=== PATIENT | male | born 1970 | race Caucasian/White ===

== ENCOUNTER 2017-09-10 18:56 | Emergency (ER) | payer SELFPAY ==
[~2017-09-10] VITALS: Ht 157.5 cm; Wt 71.7 kg
[2017-09-10 18:59] VITALS: Ht 157.5 cm; Wt 71.7 kg
[2017-09-10] MEDS ORDERED: HYDROCODONE/APAP (5/325) TAB PO ONE (20:00)
--- NOTE | 2017-09-10 20:45 | RADRPT ---
PROCEDURE: Right ankle CLINICAL INDICATION: Trauma TECHNIQUE: 3 views COMPARISON: None FINDINGS: Ankle mortise appears intact with overlying soft tissue swelling noted over the lateral malleolus. A lso noted nondisplaced fifth metatarsal base fracture. Correlate clinically. IMPRESSION: Fifth metatarsal base fracture. Intact ankle mortise. RPTAT: [facility] Physician Nuvia Date Time Electronically viewed and signed by Physician Nuvia on 09/10/2017 20:45 MB/
--- NOTE | 2017-09-10 20:51 | RADRPT ---
PROCEDURE: XR Foot. CLINICAL INDICATION: Trauma, pain TECHNIQUE: AP, lateral and oblique views of the right foot was obtained. The images were reviewed on a PACS workstation. COMPARISON: None. FINDINGS: Nondisplaced fracture of the base of the fifth metatarsal. No dislocation is seen . Mild dorsal soft tissue swelling. IMPRESSION: Fracture of the base of the fifth metatarsal. Mild dorsal soft tissue swelling. RPTAT: [facility]JES .Tommy Perry MD, MD Date Time Electronically viewed and signed by .Tommy Perry MD, on 09/10/2017 20:50 .S/
[2017-09-10] MEDS ORDERED: HYDR-906 PO (20:54)
[2017-09-10] MEDS ORDERED: IBUP800T25 PO (20:54)
--- NOTE | 2017-09-10 20:57 | ERD ---
ER Documentation Chief Complaint Chief Complaint fell last , hematoma&swollen R ankle now HPI This patient is a 46-year-old male who states he had a mechanical fall on and since he has been having pain and swelling to the right ankle. He is able to bear weight and walk slowly with pain. He has not taken any medication for pain. Denies any head injury or KO. Denies any numbness or tingling. ROS All systems reviewed and are negative except as per history of present illness. Medications Home Meds Active Scripts Hydrocodone/Acetaminophen (Claridge 5-325 Tablet) 1 Each Tablet, 1 TAB PO Q6H Y for PAIN, #20 TAB Prov:PARIS PINZON PA-C 09/10/17 Ibuprofen* (Motrin*) 800 Mg Tab, 800 MG PO Q6, #30 TAB Prov:PARIS PINZON PA-C 09/10/17 Allergies Allergies: Coded Allergies: No Known Allergy (Unverified , 09/10/17) PMhx/Soc History of Surgery: No Anesthesia Reaction: No Hx Neurological Disorder: No Hx Respiratory Disorders: No Hx Cardiac Disorders: No Hx Psychiatric Problems: No Hx Miscellaneous Medical Probl: No Hx Alcohol Use: No Hx Substance Use: No Hx Tobacco Use: No Smoking Status: Never smoker FmHx Family History: No diabetes Physical Exam Vitals Vital Signs Date Time Temp Pulse Resp B/P Pulse Ox O2 Delivery O2 Flow Rate FiO2 09/10/17 18:59 97.2 84 18 128/74 96 Physical Exam Const: [] Head: Atraumatic Eyes: Normal Conjunctiva ENT: Normal External Ears, Nose and Mouth. Neck: Full range of motion..~ No meningismus. Resp: Clear to auscultation bilaterally Cardio: Regular rate and rhythm, no murmurs Ext: Swelling over the ankle and tenderness throughout particularly over the lateral aspect. Pedal pulse 2+, sensation to light touch is intact, capillary refill less than 2 seconds, no bony abnormality Results 24 hrs Current Medications Medications (Trade) Dose Ordered Sig/Willy Route PRN Reason Start Time Stop Time Status Last Admin Dose Admin Acetaminophen/ Hydrocodone Bitart (Claridge (5/325)) 1 tab ONCE ONCE PO 09/10/17 20:00 09/10/17 20:01 DC 09/10/17 19:49 Procedures/MDM 46-year-old male presents with metatarsal fracture after trauma which was confirmed on x-ray today. He is neurovascularly intact. He was given Claridge for pain control as well as prescription for Claridge and ibuprofen. He was given crutches and he was placed in a splint and given outpatient referral to orthopedics. Patient counseled regarding my diagnostic impression and care plan. Prior to discharge all questions answered. Pt agrees with treatment plan and understands strict return precautions. Pt is instructed to follow up with primary care provider within 24-48 hours. Precautionary instructions provided including instructions to return to the ER if not improving or for any worsening or changing symptoms or concerns. Departure Diagnosis: Primary Impression: Metatarsal fracture Condition: Stable Patient Instructions: Fracture, Lower Extremity Referrals: [facility] () ted se rodriguez hecho un examen mdico de control que le indica que no est en gala condicin que requiera tratamiento urgente en el Departamento de Emergencia. Un estudio ms profundo y el tratamiento de nguyen condicin pueden esperar sin ningn riesgo hasta que usted sea atendida/o en el consultorio de ngueyn mdico o gala cl meg. Es responsabilidad suya arreglar gala chau para el seguimiento del anuel. MANEJO DE CONDICIONES NO URGENTES EN EL FUTURO 1) Si usted tiene un mdico de atencin primaria: Usted debera llamar a nguyen mdico de atencin primaria antes de venir al departamento de emergencia. Despus de las horas de consultorio, nguyen doctor o nguyne asociado/a est disponible por telfono. El mdico o enfermero de vickie en el servicio telefnico puede asesorarle por kaia medio para atender el problema, o anuel contrario se puede programar gala chau. 2) Si usted no tiene un mdico de atencin primaria: Llame al mdico o condado institucions de referencia que aparece abajo jyoti las horas de consultorio para hacer gala chau para que le vean. SI USTED NO PUEDE PAGAR PARA KATYA UN MEDICO puede ir a: [facility] [address] [place] [address] [facility] [address] [place] [address] [facility] [address] [place] [address] [facility] [address] [place] [address] SO [facility] Hours: Mon-Tue 9:00 AM - 5:00 PM Additional Instructions: Llame al doctor MAANA y carlos gala CHAU PARA DENTRO DE 1-2 BOWLING.Dgale a la secretaria que nosotros le instruimos hacer esta chau.Avise o llame si nguyen condicin se empeora antes de la chau. Regresa aqui si peor o no mejor. Specialist:Usted tiene gala condicin mdica que requiere que terrell a un especialista dentro de los prximos 1-2 miller.POR FAVOR,CON NGUYEN SEGUIMIENTO DE PRIMARIA PHSICIAN refferal. SI USTED NO TIENE UN MDICO GENERAL Y / O USTED NO PUEDE PAGAR katya a un mdico,los siguientes courtney RECURSOS sido suministrado a usted. ES NGUYEN RESPONSABILIDAD PARA SER VISTOS POR EL ESPECIALISTA:REFILL:Usted va a necesitar ir a nguyen mdico personal o la clnica si usted necesita mas medicamento de lo que le hayamos recetado.El Departamento o Lili de Emergencias no provee ""un nuevo surtido"" sin ser examinado por un doctor. PARIS PINZON PA-C Sep 10, 2017 20:57
[2017-09-10 21:35] VITALS: BP 128/78; PULSE 78; RESP 18; TEMP 97.2
== END 2017-09-10 21:36 | disposition home or self-care (01) ==
LOC: FTE 18:56
DX: S92.351A Displaced fracture of fifth metatarsal bone, right foot, initial encounter for closed fracture (principal); W18.39XA Other fall on same level, initial encounter; Y92.9 Unspecified place or not applicable
CPT/HCPCS: 73630